=== PATIENT | male | born 1965 | race Hispanic/Latino ===

== ENCOUNTER 2016-05-14 20:44 | Observation (INO) | payer SELFPAY ==
[~2016-05-14] VITALS: Ht 162.6 cm; Wt 66.7 kg
[~2016-05-14 20:44] MED LIST: LORTAB5 PO; NO HOME MEDS
--- NOTE | 2016-05-14 20:52 | NUR ---
DEEJAY TO ROOM 6 VIA EMS STRETCHER. PATIENT TRIAGE COMPLETED AT BEDSIDE. MD AT BEDSIDE FOR EVAL.
[2016-05-14 21:24] LABS: HEMATOCRIT 41.7 % (39.0-50.0); HEMOGLOBIN 14.9 g/dl (14.0-18.0); IMMATURE GRANULOCYTES 0.2 % (0.0-1.0); MEAN CORPUSCULAR HGB 32.5 pG CALC (26.0-32.0); MEAN CORPUSCULAR HGB CONC 35.7 g/L CALC (32.0-36.0); NEUT# 3.07 thou/uL (1.82-7.42); RED BLOOD COUNT 4.58 mill/uL (4.70-6.10); RED CELL DISTRI WIDTH 12.6 % (11.5-15.5)
[2016-05-14 21:47] LABS: ALBUMIN 4.4 g/dL (3.2-5.0); ALKALINE PHOSPHATASE 90 u/l (38-126); AMYLASE 51 u/l (30-110); ANION GAP 21 (6-22 (CALC)); BILIRUBIN, TOTAL 0.7 mg/dL (0.0-1.4); BUN 6 mg/dL (9-20); BUN/CREATININE RATIO 9 (12-20 (CALC)); CARBON DIOXIDE 25 mmol/l (22-30); CHLORIDE 97 mmol/l (95-108); CREATININE 0.7 mg/dL (0.7-1.3); GFR > 60 ML/MIN (>=60 (CALC)); GFR FOR AFR.AMER. > 60 ML/MIN (>=60 (CALC)); GLUCOSE 106 mg/dL (75-110); LIPASE 56 u/l (23-300); SGOT/AST 44 u/l (17-59); SGPT/ALT 45 u/l (21-72); SODIUM 138 mmol/l (137-146); TOTAL PROTEIN 8.1 g/dL (6.3-8.2)
--- NOTE | 2016-05-14 22:00 | NUR ---
PATIENT CALLING FRIENDS AND FAMILY ON HIS CELL PHONE. AWAITING PLAN OF CARE.
--- NOTE | 2016-05-14 23:00 | NUR ---
PATIENT UP TO SIDE OF STRETCHER TO USE URINAL.
--- NOTE | 2016-05-14 23:54 | NUR ---
PATIENT RESTING ON STRETCHER. IVF INFUSING. AWAITING DISPOSITION.
[2016-05-15] VITALS (8 sets, daily range): BP systolic 108–137; BP diastolic 66–81
--- NOTE | 2016-05-15 01:29 | NUR ---
CALL PLACED TO ORTHO TO DISCUSS XRAY AND PLAN OF CARE. PATIENT RESTING ON STRETCHER WITH EYES CLOSED. APPEARS COMFORTABLE.
--- NOTE | 2016-05-15 02:25 | NUR ---
POSTERIOR OCL SPLINT APPLIED. PATIENT TOLERATED WELL. GOOD CMS PRE AND POST APPLICATION.
--- NOTE | 2016-05-15 02:40 | NUR ---
REPORT ATTEMPTED. NO ANSWER ON THE FLOOR.
--- NOTE | 2016-05-15 03:25 | NUR ---
PATIENT READIED FOR TRANSPORT TO FLOOR VIA STRETCHER.
--- NOTE | 2016-05-15 03:30 | NUR ---
RECEIVED FROM ER VIA STRETCHER ACCOMPANIED BY ER NURSE, A/O X3, RESPIRATIONS EVEN AND UNLABORED ON RA. OCL SPLINT IN PLACE TO RIGHT LEG DUE TO RIGHT ANKLE FX. DENIES PAIN, UNABLE TO PALPATE PULSE DUE TO SPLINT, LEG WARM TO TOUCH EDEMA NOTICED TO TOES UNABLE TO SEE ANKLE. ORIENTED TO BED CONTROLS AND CALL LIGHT. URINAL AT BED SIDE.
--- NOTE | 2016-05-15 07:00 | NUR ---
REPORT RECIEVED FROM LIZ WHITE; PT RESTING IN BED WITH EYES CLOSED; NO S/S OF DISTRESS NOTED; FALL PRECAUTIONS IN PLACE; CALL LIGHT WITHIN REACH; WILL CONTINUE TO MONITOR
--- NOTE | 2016-05-15 08:50 | NUR ---
PT C/O PAIN TO RIGHT ANKLE RATING 10 OUT OF 10; PT MEDICATED WITH MORPHINE PER DR JOHNSON; PT DENIES ANY OTHER NEEDS AT THIS TIME; IVF INFUSING AT PRESCRIBED RATE PER PHYSICIANS ORDERS; CALL LIGHT WITHIN REACH; WILL CONTINUE TO MONITOR
--- NOTE | 2016-05-15 13:00 | NUR ---
PT RESTING IN BED WITH EYES CLOSED; NO S/S OF DISTRESS NOTED; IVF INFUSING AT PRESCRIBED RATE; CALL LIGHT WITHIN REACH; WILL CONTINUE TO MONITOR
[2016-05-15 17:34] LABS: URINE BILIRUBIN - DIPSTICK NEGATIVE (NEGATIVE); URINE BLOOD DIPSTICK NEGATIVE (NEGATIVE); URINE CLARITY CLEAR; URINE COLOR YELLOW; URINE GLUCOSE - DIPSTICK NEGATIVE (NEGATIVE); URINE KETONE NEGATIVE (NEGATIVE); URINE LEUK ESTERASE NEGATIVE (NEGATIVE); URINE NITRITE - DIPSTICK NEGATIVE (Negative); URINE PROTEIN - DIPSTICK NEGATIVE (NEG-TRACE)
--- NOTE | 2016-05-15 17:39 | NUR ---
PT OFF FLOOR TO OR AT THIS TIME; PT IN STABLE CONDITION
[2016-05-15 17:43] LABS: BARBITURATES NEGATIVE (NEGATIVE); COCAINE NEGATIVE (NEGATIVE); METHADONE NEGATIVE (NEGATIVE); OXCYCODONE NEGATIVE (NEGATIVE); TETRAHYDROCANNABIONOL NEGATIVE (NEGATIVE); TRICYLIC ANTIDEPRESSANTS NEGATIVE (NEGATIVE)
--- NOTE | 2016-05-15 21:20 | NUR ---
PATIENT RETURNED FROM PACU VIA STRETCHER WITH OR STAFF IN ATTENDANCE. PATIENT ASSISTED FROM STRETCHER TO BED. PATIENT IS AWAKE ALERT AND ORIENTEDX3-GABONESE SPEAKING ONLY. RIGHT FOOT ELEVATED ON PILLOWSX3 ORDERED. ICE PACK APPLIED BEHIND RIGHT KNEE ORDERED. PATIENT WITH IV SITE TO RIGHT AC-SITE APPEARS HEALTHY AT THIS TIME. IVF AT 100CC/HR ORDERED. SAFETY PRECAUTIONS REINFORCED WITH TRANLATOR IN GABONESE. CALL LIGHT IN REACH. WILL CONT TO MONITOR.
[2016-05-16] VITALS: BP 103/64
--- NOTE | 2016-05-16 00:15 | NUR ---
PATIENT C/O MILD PAIN-5/1- ON PAIN SCALE-MEDICATED WITH PERCOCET 10/325MG PO ORDERED. CALL LIGHT IN REACH. WILL CONT TO MONITOR.
--- NOTE | 2016-05-16 02:03 | NUR ---
PATIENT IS NOW C/O SEVERE PAIN TO RLE-9/10 ON PAIN SCALE. PATIENT MEDICAED WITH MORPHINE 2MG IVP ORDERED. RLE REMAINS ELEVATED ON PILLOWS WITH ICE BEHIND RIGHT KNEE. IV ANCEF INFUSING ORDERED. CALL LIGHT IN REACH. WILL CONT TO MONITOR.
--- NOTE | 2016-05-16 02:57 | NUR ---
PATIENT IS RESTLESS AND CONT TO C/O SEVERE POST-OP PAIN. PATIENT MEDICATED WITH ATIVAN FOR ANXIETY AT THIS TIME. RLE CONT TO BE ELEVATED ON 3 PILLOWS. CALL LIGHT IN REACH. WILL CONT TO MONITOR.
[2016-05-16 04:35] VITALS: BP 119/74
[2016-05-16 05:00] VITALS: BP 156/83
--- NOTE | 2016-05-16 05:05 | NUR ---
PATIENT RESTING IN BED WITH RIGHT LE ELEVATED ON 3 PILLOWS ORDERED. CMS CHECK TO TOES ARE WNL. PATIENT WITH SEVERE POST-OP PAIN-/-MEDICATED WITH PERCOCET 10/325MG PO ORDERED. LOVENOX GIVEN ORDERED. CALL LIGHT IN REACH. WILL CONT TO MONITOR.
[2016-05-16 05:51] LABS: HEMATOCRIT 38.9 % (39.0-50.0); HEMOGLOBIN 13.8 g/dl (14.0-18.0); IMMATURE GRANULOCYTES 0.6 % (0.0-1.0); MEAN CELL VOLUME 92.8 fL CALC (80.0-100.0); MEAN CORPUSCULAR HGB 32.9 pG CALC (26.0-32.0); MEAN CORPUSCULAR HGB CONC 35.5 g/L CALC (32.0-36.0); NEUT# 7.81 thou/uL (1.82-7.42); RED BLOOD COUNT 4.19 mill/uL (4.70-6.10); RED CELL DISTRI WIDTH 12.5 % (11.5-15.5)
[2016-05-16 06:07] LABS: ANION GAP 14 (6-22 (CALC)); BUN 6 mg/dL (9-20); BUN/CREATININE RATIO 9 (12-20 (CALC)); CARBON DIOXIDE 27 mmol/l (22-30); CHLORIDE 99 mmol/l (95-108); CREATININE 0.7 mg/dL (0.7-1.3); GFR > 60 ML/MIN (>=60 (CALC)); GFR FOR AFR.AMER. > 60 ML/MIN (>=60 (CALC)); GLUCOSE 125 mg/dL (75-110); POTASSIUM 3.8 mmol/l (3.5-5.1); SODIUM 136 mmol/l (137-146)
--- NOTE | 2016-05-16 07:00 | NUR ---
DR. ROBISON IN TO SEE PT
--- NOTE | 2016-05-16 07:26 | NUR ---
PT RESTING WITH EYES CLOSED; RT LLE ELEVATED ON 3 PILLOWS; CALL LIM WITHIN REACH; WILL CONTINUE TO MONITOR.
[2016-05-16 08:03] VITALS: BP 149/78
--- NOTE | 2016-05-16 08:40 | NUR ---
PHYSCIAL THERAPY IN WITH PT; PT MEDICATED FOR PAIN 10/28; WILL CONTINUE TO MONITOR.
--- NOTE | 2016-05-16 12:18 | NUR ---
DR. JOHNSON IN TO SEE PT; PLAN OF CARE DISCUSSED
[2016-05-16 16:00] VITALS: BP 136/78
--- NOTE | 2016-05-16 17:46 | NUR ---
PHYSICAL THERAPY IN WITH PT
--- NOTE | 2016-05-16 17:51 | NUR ---
PT WAS SEEN SUPINE WITH HOB ELEVATED. SUPINE TO SHORT SITTING WAS DONE WITH VERBAL CUES; PUSHED HIMSELF UP FROM SIT TO STAND WITH VERBAL CUES AND AXILLARY CRUTCHES. PT WAS WHEELED TO THE STAIRCASE WITH IV IN PLACE. PERFORMED STAIR AMBULATION W/ A CRUTCH ON ONE HAND WHILE THE OTHER HAND WAS HOLDING ONTO THE STAIR RAIL, WITH CGA OF 2 AND VERBAL CUES. R LE NWB. PT WAS WHEELED BACK TO HIS ROOM AT THE END OF STAIR AMB. NO ADVERSE RXNS TO TX NOTED OR REPORTED. ASSISTED PT FROM WHEELCHAIR TO BED WITH MIN A AND VERBAL CUES. LEFT PT WITH CALL LIM BESIDE HIM.
[2016-05-16 19:25] VITALS: BP 143/81
--- NOTE | 2016-05-16 20:00 | NUR ---
PATIENT RESTING IN BED WITH RIGHT LE ELEVATED ON 3 PILLOWS. SPLINT WITHACE WRAP DRESSING CLEAN DRY AND INTACT. PATIENT C/O SEVERE PAIN-MEDICATED WITH PERCOCET 10/325MG. 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 SITE APPEARS HALETHY AT THIS TIME. CALL LIGHT IN REACH. WILL CONT TO MONITOR.
--- NOTE | 2016-05-17 | NUR ---
PATIENT APPEARS SLEEPING AT THIS TIME. CALL LIGHT IN REACH. WILL CONT TO MONITOR.
--- NOTE | 2016-05-17 02:51 | NUR ---
PATIENT RESTING IN BED WITH RIGHT FOOT ELEVATED ON PILLOWS. PATIENT C/O SEVERE RIGHT ANKLE PAIN-09/27. PATIENT MEDICATED WITH PERCOCET 10/325MG PO ORDERED. CALL LIGHT IN REACH. WILL CONT TO MONITOR.
[2016-05-17 04:38] VITALS: BP 118/74
--- NOTE | 2016-05-17 05:34 | NUR ---
PATIENT APPEARS SLEEPING AT THIS TIME WITH EYES CLOSED. RLE REMAINS ELEVATED ON 3 PILLOWS. CALL LIGHT IN REACH. WILL CONT TO MONITOR.
[2016-05-17 07:27] VITALS: BP 113/70
--- NOTE | 2016-05-17 07:40 | NUR ---
PT IN SUPINE POSITION; RT FOOT ELEVATED ON 3 PILLOWS; NO COMPLAINTS VOICED AT THIS TIME; CALL LIM WITHIN REACH; WILL CONTINUE TO MONITOR.
--- NOTE | 2016-05-17 10:00 | NUR ---
DR. JOHNSON IN TO SEE PT; PLAN OF CARE DISCUSSED;
[2016-05-17] MEDS ORDERED: PERCOCET 10/31 COMBO PO (12:47)
[2016-05-17] MEDS ORDERED: ASPIRIN EC325 MG PO (12:47)
--- NOTE | 2016-05-17 13:00 | NUR ---
PHYSICAL THERAPY IN WITH PT
--- NOTE | 2016-05-17 14:18 | NUR ---
Discharge instructions given. Patient verbalizes understanding of same. Discharged in stable condition via Wheelchair to Home with *Other. All belongings sent with pt.
== END 2016-05-17 14:21 | disposition home or self-care (01) | DRG 494 ==
LOC: ENPENDDIS → ED 20:44 → ED-I 21:25 → ED 05-15 02:44 → MS2 05-15 02:45
PROVIDERS: Emergency Medicine; ADMIT Internal Medicine; ATTEND Internal Medicine
PROC: 0QSJ04Z Reposition Right Fibula with Internal Fixation Device, Open Approach (ICD-10-PCS; principal; 2016-05-15)
PROC: 0QSG04Z Reposition Right Tibia with Internal Fixation Device, Open Approach (ICD-10-PCS; 2016-05-15)
PROC: 0QSG04Z Reposition Right Tibia with Internal Fixation Device, Open Approach (ICD-10-PCS; 2016-05-15)
PROC: 2W3LX1Z Immobilization of Right Lower Extremity using Splint (ICD-10-PCS; 2016-05-15)
DX: S82.851A Displaced trimalleolar fracture of right lower leg, initial encounter for closed fracture (principal); F10.229 Alcohol dependence with intoxication, unspecified; V19.3XXA Pedal cyclist (driver) (passenger) injured in unspecified nontraffic accident, initial encounter; Y90.8 Blood alcohol level of 240 mg/100 ml or more
CPT/HCPCS: G0378; J1650; J2060